=== PATIENT | female | born 1960 | race Caucasian/White ===

== ENCOUNTER → 2024-10-29 12:04 | Outpatient (REF) | payer OTHER, SELFPAY | LOC: PAVMRI 12:04 | PROVIDERS: ATTENDING PHYSICIAN Psychiatry & Neurology Neurology; FAMILY PHYSICIAN Family Medicine | DX: R42 Dizziness and giddiness (principal) | CPT/HCPCS: 70553; A9575 ==

== ENCOUNTER 2025-02-08 18:58 | Emergency (ER) | payer OTHER, SELFPAY ==
[2025-02-08 19:05] VITALS: BP 148/92
[2025-02-08 19:26] LABS: Hematocrit 43.4 % (37.0-47.0); Hemoglobin 14.3 g/dL (12.0-16.0); Mean Corp Hgb Conc. 32.9 g/dL (33.0-37.0); Mean Corpuscular Volume 89.5 fL (81.0-99.0); Nucleated Red Blood Cells % 0 %; Platelet Count 242 10^3/uL (130-400); Red Cell Dist. Width 13.6 % (11.5-14.5)
[2025-02-08 19:42] LABS: ALT (SGPT) 21 U/L (0-35); AST (SGOT) 21 U/L (14-36); Albumin 4.7 g/dl (3.5-5.0); Alkaline Phosphatase 99 U/L (38-126); Blood Urea Nitrogen 12 mg/dl (7-17); Calcium 9.2 mg/dl (8.4-10.2); Carbon Dioxide 27 mmol/L (22-30); Chloride 107 mmol/L (98-107); Glucose 135 mg/dl (70-99); Potassium 4.0 mmol/L (3.5-5.1); Sodium 140 mmol/L (135-145); Total Protein 7.4 g/dl (6.3-8.2); eGFR > 60.00
[2025-02-08 22:38] LABS: D-Dimer < 0.27 ug/mlFEU (0.00-0.50)
[2025-02-08 22:44] LABS: Troponin I 0.019 ng/ml
[2025-02-08 23:45] VITALS: BP 150/81
[2025-02-09 01:37] LABS: Troponin I 0.024 ng/ml
--- NOTE | 2025-02-09 01:44 | ED.GENMED ---
History of Present Illness
General
Chief Complaint: Dizziness
Source: patient
Time Seen by Provider: 02/08/25 21:04
History of Present Illness
History of Present Illness:
Note:
CHIEF COMPLAINT(S)
difficulty breathing, back pain, left arm discomfort.
HISTORY OF PRESENT ILLNESS
The patient is a 64-year-old female with a history of vertigo for approximately 16-18 months, who presented to the emergency department with a new onset of symptoms. The patient reported that while performing errands, she experienced significant
buzzing in the head, unlike her typical vertigo, and difficulty breathing. As she approached her home, she experienced mid-back pain pain radiating outward toward her left arm and left arm tingling. These symptoms prompted her to chew aspirin and
seek medical attention. The patient described her initial sensation as 'not vertigo' with difficulty catching her breath and noticed back pain before arriving home. Weakness persisted; she called a friend, a former nurse, for advice. She reported
palpitations and intermittent left arm pain. The event began around 5:30 PM and lasted until her arrival at the emergency department, where she continued to experience discomfort. Symptoms have now resolved
CHRONIC MEDICAL CONDITIONS SIGNIFICANTLY AFFECTING CARE
The patient has a suspected diagnosis of Hashimotos thyroiditis, identified by a neurologist. The patient has hypertension, with rising blood pressure noted in her recent history. 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
inflammatory response secondary to a hemorrhage.
SOCIAL DETERMINANTS AFFECTING HEALTH
The patient utilizes Medicaid, which may have affected the time taken to find the appropriate specialists for her condition. Additionally, she mentioned financial constraints, as the process to find the right specialists took a long time.
ALLERGIES
Penicillin (childhood allergy).
PAST MEDICAL HISTORY
The patient mentioned having had two viruses, shingles, and bronchitis approximately a year and a half ago. The vertigo symptoms began after these infections.
FAMILY HISTORY
The patient reported a family history of heart disease on her fathers side, with multiple members experiencing cardiac issues.
REVIEW OF SYSTEMS
- General: Reports feeling better now than at symptom peak.
- Cardiovascular System: Palpitations, left arm discomfort.
- Respiratory System: Shortness of breath.
- Neurological System: Unusual head sensations unlike vertigo, buzzing sensation.
- Musculoskeletal System: Mid-spinal pain radiating outward.
- Gastrointestinal System: No related symptoms reported.
- Other: Persistent vertigo for the past 16-18 months.
PHYSICAL EXAM
General: Alert, no acute distress.
Skin: Warm, dry.
Head: Normocephalic, atraumatic.
Neck: Supple, trachea midline.
Eye Ears, nose, mouth, and throat: Oral mucosa moist.
Cardiovascular: Normal peripheral perfusion, No edema. Heart regular without murmur
Respiratory: Respirations are non-labored. Lungs clear to auscultation
Gastrointestinal : Abdomen nondistended.
Back: Normal range of motion, Normal alignment.
Musculoskeletal: Normal ROM, normal strength.
Neurological: Alert and oriented to person, place, time, and situation, No focal neurological deficit observed.
Psychiatric: Cooperative, appropriate mood & affect.
PLAN
- Perform serial cardiac enzyme tests to evaluate for potential cardiac event.
- Conduct a chest X-ray to assess heart size and possible aortic issues.
- Review laboratory results for hematology and renal function.
- Monitor the patients symptoms for improvement or exacerbation.
- Ensure the patient is on a cafeteria monitor for continuous observation.
DIFFERENTIAL DIAGNOSIS
The Differential Diagnosis includes, in no particular order and is not limited to:
1. Myocardial infarction
2. Aortic dissection
3. Aortic aneurysm
4. Pulmonary embolism
5. Tension pneumothorax
6. Acute coronary syndrome
7. Pericarditis
8. Angina pectoris
9. Anxiety or panic attack
10. Stroke
EKG
My independent EKG interpretation is:
- Time of EKG: Not specified
- Rhythm: Normal sinus rhythm
- Heart Rate: 56 bpm
- [place]: Normal axis
- Notable Intervals: Not specified
- Abnormalities Observed: T wave inversions in the inferior-lateral leads
Disposition:
SUMMARY OF ENCOUNTER
The patient, a 64-year-old female, presented to the emergency department after experiencing back pain, difficulty breathing, and a pounding heart with intermittent left arm pain. She has a significant family history of heart disease and reported a
previously elevated cholesterol level. Initial evaluation included an EKG, which showed T-wave inversions. No old EKG for comparison. Troponin levels were slightly elevated at 0.019 and 0.024, though generally low. Based on the family history and
lab findings, cardiology consultation and overnight observation were recommended. A CT angiography was performed, revealing no aortic dissection or pulmonary embolism; however, an incidental liver mass was found, necessitating further
characterization. The patient did not display any further symptoms during the emergency department stay, and her physical examination was normal. Chemistry and CBC results were normal.
DISPOSITION
Admit for observation and cardiology evaluation.
INDEPENDENT REVIEW OF LABS AND INTERPRETATION OF TESTS
- My independent review of troponin indicates slightly elevated levels at 0.019 and 0.024.
- My independent review of CBC is normal.
- My independent review of chemistry is normal.
- My independent CT angiography interpretation shows no dissection or pulmonary embolism, but a liver mass was identified that requires further investigation.
MEDICAL DECISION MAKING
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 Differential diagnosis
includes myocardial infarction, aortic dissection, aortic aneurysm, pulmonary embolism, tension pneumothorax, acute coronary syndrome, pericarditis, angina pectoris, anxiety or panic attack, and stroke.
- Data:
- Category 1: Lab tests, including troponin levels and a CBC were reviewed. EKG was independently interpreted.
- Category 2: My independent interpretation of the EKG shows normal sinus rhythm with T-wave inversions in the inferior-lateral leads.
- Risk: Consideration of Admission/Observation: Escalation of care including admission/observation was considered given the complexity and risk of the patients presenting complaint, exam findings, and underlying comorbidities. The patient is
admitted for observation and cardiology evaluation. Care significantly affected by social determinants of health due to Medicaid use and financial constraints affecting specialist access.
DIAGNOSIS
- Observation for cardiac evaluation.
- Liver mass (needs further evaluation).
- T-wave inversions (abnormal EKG findings).
0205 update advised patient that I felt she should stay for further evaluation of her symptoms and findings of T wave inversions and labs but patient does not want to stay. She is concerned about the food and not being able to sleep. Counseled on
these risks. Also counseled on the importance of following up with her doctor regarding her liver mass. She agrees. She also agrees that she will call 911 if she has any other symptoms. She will continue 81 mg of aspirin daily until seen by
cardiology. I will refer her to the outpatient cardiology follow-up hotline
Past History
Past History
ED Past Medical History: Other (celiac disease, eze's thyroiditis)
Phy Exam
Physical Exam
Physical Exam:
.
Course
Orders/Labs/Results
Orders:
Orders
02/08/25 19:08
EKG [Electrocardiogram (*1)] Urgent
Reason for Study: Vertigo / Dizzy
02/08/25 19:09
EKG- Treatment ONCE
02/08/25 19:20
Complete Blood Count/With Diff Urgent
Comprehensive Metabolic Panel Urgent
02/08/25 21:57
Electrocardiogram (*1) Urgent
Reason for Study: Chest Pain
EKG- Treatment ONCE
CR Chest - 2 Views Urgent
Comment:
Reason For Exam: back pain, arm pain
02/08/25 22:10
D-Dimer Urgent
Troponin I Urgent
02/09/25 00:01
Ct Chest/Abd/Pel Angio W/Wo Iv Urgent
Reason For Exam: back pain, chest pain, r/o dissection
02/09/25 01:05
Troponin I Urgent
Abnormal Lab Results
02/08/25
19:20
MCHC 32.9 L g/dL
(33.0-37.0)
MPV 10.6 H fL
(7.4-10.4)
Absolute Neuts (auto) 9.0 H 10^3/uL
(1.4-6.5)
Absolute Lymphs (auto) 0.9 L 10^3/uL
(1.2-3.4)
Neutrophils % 89.6 H %
(42.2-75.2)
Lymphocytes % 8.4 L %
(20.5-51.1)
Monocytes % 1.4 L %
(1.7-9.3)
Glucose 135 H mg/dl
(70-99)
02/08/25 19:20
02/08/25 19:20
Vital Signs
Initial and Last Documented VS:
Initial Vital Signs
Temp Pulse Resp BP Pulse Ox
98.9 F 79 16 148/92 98
02/08/25 19:05 02/08/25 19:05 02/08/25 19:05 02/08/25 19:05 02/08/25 19:05
Last Documented Vital Signs
Temp Pulse Resp BP Pulse Ox
98.9 F 52 10 150/81 98
02/08/25 19:05 02/08/25 23:46 02/08/25 23:46 02/08/25 23:45 02/09/25 01:44
*Pulse Oximetry
SaO2: 98
Oxygen Mode of Delivery: Room air
Patient hypoxic: no
*Critical Care Note
Total Time (30-74mins, 75-104mins- exclusive of procedures): Not Applicable
ED Attending Note
-
Portions of this chart may have been created with voice recognition software.� Occasional wrong word or��sound alike� substitutions may have occurred due to the inherent limitations of voice recognition software.
Discharge Plan
Departure
Patient Disposition: Home (Routine Discharge)
Date of Disposition: 02/09/25
Time of Disposition: 01:50
Patient with high blood pressure during this ER visit?: Yes
Discharge Problem:
Atypical chest pain, Abnormal ECG, Liver mass
Instructions: Chest Pain [facility] Follow Up
Referrals:
Purnima Cohen, [Family Provider]
Activity Restrictions/Additional Instructions:
Liver mass
Please have your doctor follow-up on your CT scan result and to plan further workup regarding the liver mass seen on your CT scan.
Please take 81 mg of aspirin a day. Please avoid strenuous or exertional activity until cleared by cardiology. Please see cardiology in the next 48 hours for reevaluation. Return immediately for worsening pain, shortness breath, palpitations,
sweating, nausea, weakness of any kind, numbness, tingling or any other concerns.
Cardiology has been notified and a follow up appointment has been requested. Someone will call you on the next business day to schedule a follow up appointment.
Interventions
Interventions:
*Risk Screen - Suicide Last Done: 02/08/25 19:05
*General Assessment Last Done: 02/08/25 19:05
*Neglect/Abuse Screening Last Done: 02/08/25 19:05
*ED- Fall Risk Assessment Last Done: 02/08/25 19:05
*ED COVID-19 Vaccine History Last Done: 02/08/25 19:05
ED Swallowing Screen Last Done: 02/08/25 22:32
Discharge Date and Time
Print Language: INDIAN
== END 2025-02-09 02:38 | disposition home or self-care (01) ==
LOC: EMR 18:58
PROVIDERS: Emergency Medicine; EMERGENCY PHYSICIAN Emergency Medicine; FAMILY PHYSICIAN Family Medicine; OTHER PHYSICIAN Psychiatry & Neurology Neurology
DX: R07.89 Other chest pain (principal); R42 Dizziness and giddiness; M79.602 Pain in left arm; R53.1 Weakness; M54.6 Pain in thoracic spine; R00.2 Palpitations; R20.2 Paresthesia of skin; R03.0 Elevated blood-pressure reading, without diagnosis of hypertension; R16.0 Hepatomegaly, not elsewhere classified; R94.31 Abnormal electrocardiogram [ECG] [EKG]; I10 Essential (primary) hypertension; E06.3 Autoimmune thyroiditis; K90.0 Celiac disease; Z59.86 Financial insecurity; Z79.82 Long term (current) use of aspirin; Z82.49 Family history of ischemic heart disease and other diseases of the circulatory system; Z88.6 Allergy status to analgesic agent; Z88.0 Allergy status to penicillin
CPT/HCPCS: 99285; 71046; 71275; 74174; 80053; 84484; 85025; 85379; 93005; Q9967

== ENCOUNTER → 2025-03-11 13:16 | Outpatient (REF) | payer OTHER, SELFPAY | LOC: HWRCS 13:16 | PROVIDERS: ATTENDING PHYSICIAN Nuclear Medicine Nuclear Cardiology; FAMILY PHYSICIAN Family Medicine | DX: R53.83 Other fatigue (principal); R94.31 Abnormal electrocardiogram [ECG] [EKG]; Z82.49 Family history of ischemic heart disease and other diseases of the circulatory system; R00.2 Palpitations; R00.0 Tachycardia, unspecified; R07.89 Other chest pain; M79.602 Pain in left arm; E78.5 Hyperlipidemia, unspecified; R73.01 Impaired fasting glucose | CPT/HCPCS: 93306 ==

== ENCOUNTER → 2025-03-12 13:03 | Outpatient (REF) | payer OTHER, SELFPAY | LOC: RCS 13:03 | PROVIDERS: ATTENDING PHYSICIAN Nuclear Medicine Nuclear Cardiology; FAMILY PHYSICIAN Family Medicine | DX: R53.83 Other fatigue (principal); R94.31 Abnormal electrocardiogram [ECG] [EKG]; Z82.49 Family history of ischemic heart disease and other diseases of the circulatory system; R00.2 Palpitations; R00.0 Tachycardia, unspecified; R07.89 Other chest pain; M79.602 Pain in left arm | CPT/HCPCS: 93017; 93350 ==